=== PATIENT | male | born 1950 | race Caucasian/White ===

== ENCOUNTER 2017-03-15 10:59 | Emergency (ER) | payer MEDICARE, BC ==
[~2017-03-15 10:59] MED LIST: ADVA250A INH; ALBU1AER INH; ALBU2.5I NEB; ALLO300T2 PO; ASPI81TA82 PO; ATRO17AE INH; FURO80 PO; GLUC10TA3 PO; IBUP600 PO; IPRA0.02 NEB; KCL20 PO; LISI-363 PO; METO25TA6 PO; MULT50TA3 PO; OMEP20TA39 PO; OXYC1SOL5 PO; PRED5PAK PO; SITA100T PO; SLOWTAB PO; SPIR50TA21 PO; Z.0.OXYGENDME NC
[2017-03-15 11:00] VITALS: BP 135/74; PULSE 87; RESP 20; TEMP 98.7; O2SAT 95
[2017-03-15] MEDS ORDERED: CEPH-460 PO (11:26)
--- NOTE | 2017-03-15 11:26 | PD ---
HPI Chief Complaint: Skin Problem Time Seen by Provider: 11:20 Travel History International Travel<30 days: No Contact w/Intl Traveler<30days: No Traveled to known affect area: No History of Present Illness HPI 66-year-old diabetic male presents to emergency department concerned about an infectious process to his left hand and wrist. States that he had swelling to his right hand for approximately 1 week and has worsened over the last couple of days. Says that the redness concerns him for an infection "going to his heart". Denies trauma or any inciting events. States that it is mildly tender and he is unable to tolerate pain. Denies radiation of pain. Patient has not seen his primary care physician regarding this issue. PFSH Past Medical History Arthritis: No Asthma: Yes Anxiety: No Depression: No Cancer: No Cardiovascular Problems: Yes High Cholesterol: Yes Chest Pain: No Congestive Heart Failure: No COPD: Yes Cerebrovascular Accident: No Coronary Artery Disease: No Diabetes: Yes Diminished Hearing: Yes (BILATERAL WORSE ON LEFT) Endocrine: Yes Gastrointestinal Disorders: Yes GERD: Yes Genitourinary: No Hiatal Hernia: Yes Hypertension: Yes Immune Disorder: No Kidney Stones: No Musculoskeletal: No Neurologic: No Psychiatric: No Reproductive: No Respiratory: Yes Migraines: No Pancreatitis: Yes Renal Failure: No Seizures: No Sleep Apnea: Yes (C-PAP HS) Thyroid Disease: No Ulcer: No Past Surgical History Abdominal Surgery: Yes (HERNIA X 2 ) Cholecystectomy: Yes Ear Surgery: Yes (BILATERAL INNER EAR SURGERY) Neurologic Surgery: No Other Surgery: Yes (BILATERAL FEET) Social History Alcohol Use: No Tobacco Use: No (history of 1 PPD, quit June 2014) Substance Use: No Allergies-Medications (Allergen,Severity, Reaction): Coded Allergies: No Known Allergies (Verified , 11/18/13) Reported Meds & Prescriptions Reported Meds & Active Scripts Active Keflex (Cephalexin) 500 Mg Cap 500 Mg PO Q8H 7 Days Oxygen (O2) (Z.0.oxygendme) Device 2 L NC CONTINUOUS Oxygen Concentrator Portable Gaseous 2 L/min via Nasal Cannula Continuous For 99 months Sterapred 12 Day (Prednisone) 5 Mg Maciej 5 Mg PO DIRECTED USE DIRECTED Oxycodone/Acetaminophen 5-325 mg/5Ml (Oxycodone W/ Acetaminophen) 1 Tab Tab 1 Tab PO Q6H PRN Reported Hm Omeprazole (Omeprazole) 20 Mg Tab 20 Mg PO DAILY Lisinopril 20 mg (Lisinopril) 20 Mg Tab 20 Mg PO DAILY Lasix 80 Mg Tab (Furosemide) 80 Mg Tab 80 Mg PO DAILY Motrin 600 Mg Tab (Ibuprofen) 600 Mg Tab 600 Mg PO TID PRN Spironolactone 50 Mg Tab 50 Mg PO DAILY Glipizide 10 Mg Tab 10 Mg PO BID Janumet Xr 100 mg/1000 mg (Sitagliptin-Metformin Xr 100 mg/1000 mg) 1 Tab 1 Tab PO DAILY Toprol XL (Metoprolol Succinate) 25 Mg Chris 25 Mg PO DAILY Atrovent Ud 0.02% (0.5 Mg/2.5 Ml) (Ipratropium [place]) 0.5 Mg/2.5 Ml Nebu 1 Ampule NEB DIRECTED PRN Resp: Albuterol 2.5 Mg/3 Ml Neb (Albuterol Sulfate) 2.5 Mg/3 Ml Nebu 1 Ampule NEB DIRECTED PRN Allopurinol 300 Mg Tab 300 Mg PO DAILY PRN Advair Diskus 250/50 (Salmeterol Xinafoate/Fluticasone) 250 Mcg/50 Mcg Inhp 1 Puff INH BID A Thru Z Select 50+ Advan (Multiple Vitamins W/ Minerals) 50 + Tab 1 Tab PO DAILY Atrovent Hfa (Ipratropium [place]) 17 Mcg Aer 2 Puff INH BID Proair Hfa (Albuterol Sulfate) 8.5 Gm Aero 2 Puff INH Q6HR PRN Kcl 20 Meq Tab (Potassium Chloride) 20 Meq Tabcr 20 Meq PO BIDPC Slow-Mag (Magnesium Chloride) 64 Mg Tab 1 Tab PO DAILY Aspir-81 (Aspirin) 81 Mg Tab 81 Mg PO DAILY@1600 Physical Exam Narrative GENERAL: Well-nourished, well-developed patient. SKIN: Focused skin assessment warm/dry. Left wrist-6 cm area of erythema with mild edema. No lymphangitic Spread. Neurovascularly intact distal to the infectious process. HEAD: Normocephalic. EYES: No scleral icterus. No injection or drainage. NECK: Supple, trachea midline. No JVD or lymphadenopathy. CARDIOVASCULAR: Regular rate and rhythm without murmurs, gallops, or rubs. RESPIRATORY: Breath sounds equal bilaterally. No accessory muscle use. MUSCULOSKELETAL: No cyanosis, or edema. BACK: Nontender without obvious deformity. No CVA tenderness. Data Data Last Documented VS Vital Signs Date Time Temp Pulse Resp B/P (MAP) Pulse Ox O2 Delivery O2 Flow Rate FiO2 03/15/17 11:00 98.7 87 20 135/74 (94) 95 Room Air Orders Orders Ed Discharge Order (03/15/17 11:26) MDM Medical Decision Making Medical Screen Exam Complete: Yes Emergency Medical Condition: Yes Differential Diagnosis Left hand cellulitis, erysipelas, trauma Narrative Course 66-year-old diabetic male presents to emergency department concerned about an infectious process to his left hand and wrist. States that he had swelling to his right hand for approximately 1 week and has worsened over the last couple of days. Says that the redness concerns him for an infection "going to his heart". Denies trauma or any inciting events. States that it is mildly tender and he is unable to tolerate pain. Denies radiation of pain. Patient has not seen his primary care physician regarding this issue. States he has chronic arthritis in his primary care physician has been working to resolve this but has been unsuccessful. Patient was recently referred to an arthritis doctor but he has not followed up yet. Vital signs stable. Physical exam findings consistent with cellulitis of the left wrist and hand. It appears as though the point of entry is near the ulnar aspect of the distal wrist although not definitive. No evidence of bites or significant injuries. Patient will be discharged with antibiotics. I advised that pain medication would not be appropriate for this problem. Advised to follow-up Saturday with his primary care physician as scheduled. Return to the emergency room for worsening or persistent symptoms. Diagnosis Primary Impression: Cellulitis Qualified Codes: L03.114 - Cellulitis of left upper limb Referrals: Primary Care Physician Additional Instructions: Follow up with your primary care physician within 2-3 days. If your symptoms persist or worsen, return to the emergency department. Take all medication as prescribed. Scripts Cephalexin (Keflex) 500 Mg Cap 500 MG PO Q8H for Infection for 7 Days, #21 CAP 0 Refills Prov: Jana Ryder 03/15/17 Disposition: 01 DISCHARGE HOME Condition: Stable Jana Ryder Mar 15, 2017 11:26
== END 2017-03-15 11:52 | disposition home or self-care (01) ==
LOC: NEPK 10:59
DX: L03.114 Cellulitis of left upper limb (principal); E11.9 Type 2 diabetes mellitus without complications; E78.00 Pure hypercholesterolemia, unspecified; J44.9 Chronic obstructive pulmonary disease, unspecified; K21.9 Gastro-esophageal reflux disease without esophagitis; I10 Essential (primary) hypertension; Z87.19 Personal history of other diseases of the digestive system; Z79.899 Other long term (current) drug therapy; Z79.51 Long term (current) use of inhaled steroids
CPT/HCPCS: 99283

== ENCOUNTER 2017-03-18 10:20 | Emergency (ER) | payer MEDICARE, BC ==
[~2017-03-18] VITALS: Ht 182.9 cm; Wt 113.0 kg
[~2017-03-18 10:20] MED LIST changes: +CEPH-460 PO
[2017-03-18 10:23] VITALS: BP 130/67; PULSE 70; RESP 18; TEMP 97.9; O2SAT 94
[2017-03-18] MEDS ORDERED: ASPI1TAB57 PO (10:53)
[2017-03-18] MEDS ORDERED: FURO20TA PO (10:53)
[2017-03-18] MEDS ORDERED: GLIP10TA6 PO (10:53)
[2017-03-18] MEDS ORDERED: IPRA17I INH (10:53)
[2017-03-18] MEDS ORDERED: OMEP10CA PO (10:53)
[2017-03-18] MEDS ORDERED: SITA100T PO (10:53)
[2017-03-18] MEDS ORDERED: IPRA0.02 NEB (10:53)
[2017-03-18] MEDS ORDERED: METO25TA3 PO (10:53)
[2017-03-18] MEDS ORDERED: ADVA250A INH (10:53)
[2017-03-18] MEDS ORDERED: ALBUAER3 INH (10:53)
[2017-03-18] MEDS ORDERED: SPIR50TA PO (10:53)
[2017-03-18] MEDS ORDERED: LISI-515 PO (10:53)
[2017-03-18 11:07] LABS: AUTOMATED NEUTROPHIL # 5.3 TH/MM3 (1.8-7.7); BASOPHIL % 0.2 % (0.0-2.0); EOSINOPHIL # 0.1 TH/MM3 (0-0.4); EOSINOPHIL % 1.2 % (0.0-4.0); HEMATOCRIT 36.2 % (39.0-51.0); HEMOGLOBIN 12.4 GM/DL (13.0-17.0); LYMPH % 10.5 % (9.0-44.0); LYMPHOCYTE # 0.7 TH/MM3 (1.0-4.8); MEAN CELL VOLUME 94.3 FL (80.0-100.0); MEAN CORPUSCULAR HEMOGLOBIN 32.4 PG (27.0-34.0); MEAN CORPUSCULAR HGB CONC 34.4 % (32.0-36.0); MEAN PLATELET VOLUME 7.8 FL (7.0-11.0); MONO % 8.1 % (0.0-8.0); MONOCYTE # 0.5 TH/MM3 (0-0.9); PLATELET COUNT 180 TH/MM3 (150-450); RED BLOOD COUNT 3.84 MIL/MM3 (4.50-5.90); RED CELL DISTRIBUTION WIDTH 15.4 % (11.6-17.2); WHITE BLOOD COUNT 6.6 TH/MM3 (4.0-11.0)
[2017-03-18 11:22] LABS: BICARBONATE 25.6 MEQ/L (21.0-32.0); CALCIUM 8.5 MG/DL (8.5-10.1); CREATININE 1.01 MG/DL (0.60-1.30)
[2017-03-18] MEDS ORDERED: ASP: No known hypersensitivity to Vanco, Telavancin, Dalbavancin OTHER ONE (11:45)
[2017-03-18] MEDS ORDERED: ASP: Does not meet inpatient admission criteria OTHER ONE (11:45)
[2017-03-18] MEDS ORDERED: MISCELLANEOUS PHARMACY INFORMATION XX ONE (11:45)
[2017-03-18] MEDS ORDERED: ASP: Location of Dalbavancin administration OTHER ONE (11:45)
[2017-03-18] MEDS ORDERED: DALBAVANCIN INJ 1,500 MG in DEXTROSE 5% IN WATE 500 ML INJ 500 ML IV STA ×2 (11:45)
--- NOTE | 2017-03-18 11:57 | RADRPT ---
EXAM DATE/TIME: 03/18/2017 11:30 [facility] COMPARISON: No previous studies available for comparison. INDICATIONS : Left arm swelling. MEDICAL HISTORY : Hypercholesterolemia. Chronic obstructive pulmonary disease. Gastroesophageal reflux disease. Hearing loss. Hypertension. Sleep apnea. Pancreatitis. Hiatal hernia. Diabetes. Liver disease. SURGICAL HISTORY : Cholecystectomy. Hernia repair. Inner ear surgery. ENCOUNTER: Initial ACUITY: 1 week PAIN SCORE: 9/10 LOCATION: Left arm. FINDINGS: There is spontaneous flow documented in the brachial, basilic, cephalic, axillary, and subclavian vei ns. The vessels are compressible and augmentation response is documented. The subclavian vein could not be compressed secondary to the clavicle. No filling defects are seen. The flow is phasic with r espiration. Direction of flow in the jugular vein is caudal. CONCLUSION: No DVT. Yoan Jones MD on March 18, 2017 at 11:54 Board Certified Radiologist. This report was verified electronically.
--- NOTE | 2017-03-18 12:15 | PD ---
HPI Chief Complaint: Skin Problem Time Seen by Provider: 10:32 Travel History International Travel<30 days: No Contact w/Intl Traveler<30days: No Traveled to known affect area: No History of Present Illness HPI 66-year-old male arrives to the ER complaining of pain and swelling and redness in the left wrist. He's had it for just over a week. He reports he had a similar process involving the right wrist which responded to antibiotics although it took 5 doctor visits to heal completely over the course of several weeks. He denies fever. He has no shortness of breath. No history DVT. He reports that swelling in his legs as well as arms which is chronic in nature. He denies to us the time of interview in any need for Lasix/spironolactone however his EMR shows prior evidence of diaphoresis. PFSH Past Medical History Arthritis: No Asthma: Yes Anxiety: No Depression: No Cancer: No Cardiovascular Problems: Yes High Cholesterol: Yes Chest Pain: No Congestive Heart Failure: No COPD: Yes Cerebrovascular Accident: No Coronary Artery Disease: No Diabetes: Yes Patient Takes Glucophage: No Diminished Hearing: Yes (BILATERAL WORSE ON LEFT) Endocrine: Yes Gastrointestinal Disorders: Yes GERD: Yes Genitourinary: No Hiatal Hernia: Yes Hypertension: Yes Immune Disorder: No Kidney Stones: No Musculoskeletal: No Neurologic: No Psychiatric: No Reproductive: No Respiratory: Yes Migraines: No Pancreatitis: Yes Renal Failure: No Seizures: No Sleep Apnea: Yes (C-PAP HS) Thyroid Disease: No Ulcer: No Past Surgical History Abdominal Surgery: Yes (HERNIA X 2 ) Cholecystectomy: Yes Ear Surgery: Yes (BILATERAL INNER EAR SURGERY) Neurologic Surgery: No Other Surgery: Yes (BILATERAL FEET) Social History Alcohol Use: No Tobacco Use: No (history of 1 PPD, quit June 2014) Substance Use: No Allergies-Medications (Allergen,Severity, Reaction): Coded Allergies: No Known Allergies (Verified Allergy, Unknown, 03/18/17) Reported Meds & Prescriptions Reported Meds & Active Scripts Active Keflex (Cephalexin) 500 Mg Cap 500 Mg PO Q8H 7 Days Reported Ipratropium Neb (Ipratropium [place]) 0.5 Mg/2.5 Ml Amp 0.5 Mg NEB Q4HR NEB PRN Proair Hfa 8.5 GM Inh (Albuterol Sulfate) 90 Mcg/Act Aer 2 Puff INH BID PRN 108 mcg/actuation Advair Diskus Inh (Fluticasone-Salmeterol Inh) 250-50 Mcg/Blist Aer 1 Puff INH BID Rinse mouth after use. Atrovent HFA 12.9 GM Inh (Ipratropium [place]) 17 Mcg/Actuation Aer 2 Puff INH BID Furosemide 20 Mg Tab 20 Mg PO DAILY Janumet Xr (Sitagliptin-Metformin ER) 100-1,000 Mg Tab 1 Tab PO DAILY Glipizide 10 Mg Tab 10 Mg PO BIDAC Take 30 minutes before a meal Spironolactone 50 Mg Tab 50 Mg PO DAILY Aspirin 81 (Aspirin) 81 Mg Tabdr 81 Mg PO DAILY Lisinopril 20 Mg Tab 20 Mg PO DAILY Omeprazole 10 Mg Cap 10 Mg PO DAILY Metoprolol Tartrate 25 Mg Tab 25 Mg PO DAILY Review of Systems Except as stated in HPI: all other systems reviewed are Neg General / Constitutional: No: Fever, Chills Physical Exam Narrative GENERAL: 66-year-old male pleasant well-nourished well-developed no acute distress SKIN: Focused skin assessment warm/dry. HEAD: Atraumatic. Normocephalic. EYES: Pupils equal and round. No scleral icterus. No injection or drainage. ENT: No nasal bleeding or discharge. Mucous membranes pink and moist. NECK: Trachea midline. No JVD. CARDIOVASCULAR: Regular rate and rhythm. No murmur appreciated. RESPIRATORY: No accessory muscle use. Clear to auscultation. Breath sounds equal bilaterally. GASTROINTESTINAL: Abdomen soft, non-tender, nondistended. Hepatic and splenic margins not palpable. MUSCULOSKELETAL: No obvious deformities. No clubbing. No cyanosis. There is generalized erythema with some tenderness and induration from the distal third of the left forearm to the region of the proximal hand. There is 2+ radial artery pulse bilaterally. There is 2+ pitting edema lower extremity as bilaterally. The hand histology technician is equal bilaterally. There is no fluctuance. NEUROLOGICAL: Awake and alert. No obvious cranial nerve deficits. Motor grossly within normal limits. Normal speech. PSYCHIATRIC: Appropriate mood and affect; insight and judgment normal. Data Data Last Documented VS Vital Signs Date Time Temp Pulse Resp B/P (MAP) Pulse Ox O2 Delivery O2 Flow Rate FiO2 03/18/17 10:32 18 03/18/17 10:23 97.9 70 130/67 (88) 94 Room Air Vital Signs Date Time Temp Pulse Resp B/P (MAP) Pulse Ox O2 Delivery O2 Flow Rate FiO2 03/18/17 10:32 18 03/18/17 10:23 97.9 70 18 130/67 (88) 94 Room Air Orders Orders Us Arm Venous Doppler (03/18/17 ) Basic Metabolic Panel (Bmp) (03/18/17 10:38) Complete Blood Count With Diff (03/18/17 10:38) Iv Access Insert/Monitor (03/18/17 10:38) Asp:No Reaction To [place]/Vanc (Asp Crit (03/18/17 11:45) Asp: Does Not Meet Inpt Admit (Asp Crit: (03/18/17 11:45) Asp: Location Of [place] Admin (Asp Crit: (03/18/17 11:45) [facility] ([facility] (03/18/17 11:45) Dal[place]avancin Inj (Dalvance Inj) (03/18/17 11:45) Labs Laboratory Tests Test 03/18/17 10:56 White Blood Count 6.6 TH/MM3 Red Blood Count 3.84 MIL/MM3 Hemoglobin 12.4 GM/DL Hematocrit 36.2 % Mean Corpuscular Volume 94.3 FL Mean Corpuscular Hemoglobin 32.4 PG Mean Corpuscular Hemoglobin Concent 34.4 % Red Cell Distribution Width 15.4 % Platelet Count 180 TH/MM3 Mean Platelet Volume 7.8 FL Neutrophils (%) (Auto) 80.0 % Lymphocytes (%) (Auto) 10.5 % Monocytes (%) (Auto) 8.1 % Eosinophils (%) (Auto) 1.2 % Basophils (%) (Auto) 0.2 % Neutrophils # (Auto) 5.3 TH/MM3 Lymphocytes # (Auto) 0.7 TH/MM3 Monocytes # (Auto) 0.5 TH/MM3 Eosinophils # (Auto) 0.1 TH/MM3 Basophils # (Auto) 0.0 TH/MM3 CBC Comment DIFF FINAL Differential Comment Blood Urea Nitrogen 18 MG/DL Creatinine 1.01 MG/DL Random Glucose 87 MG/DL Calcium Level 8.5 MG/DL Sodium Level 140 MEQ/L Potassium Level 3.9 MEQ/L Chloride Level 108 MEQ/L Carbon Dioxide Level 25.6 MEQ/L Anion Gap 6 MEQ/L Estimat Glomerular Filtration Rate 73 ML/MIN MDM Medical Decision Making Medical Screen Exam Complete: Yes Emergency Medical Condition: Yes Medical Record Reviewed: Yes Differential Diagnosis DVT, edema, cellulitis Narrative Course CBC & BMP Diagram 03/18/17 10:56 Calcium Level 8.5 Ultrasound study shows no DVT We will provide a dose of Dalvance here. Diagnosis Primary Impression: Cellulitis Qualified Codes: L03.114 - Cellulitis of left upper limb Med/Other Pt SpecificInfo: No Change to Meds Disposition: 01 DISCHARGE HOME Condition: Stable Lebron Marin MD Mar 18, 2017 12:15
== END 2017-03-18 14:41 | disposition home or self-care (01) ==
LOC: NEPD 10:20
DX: L03.114 Cellulitis of left upper limb (principal); M79.89 Other specified soft tissue disorders; E11.9 Type 2 diabetes mellitus without complications; E78.00 Pure hypercholesterolemia, unspecified; I10 Essential (primary) hypertension; J44.9 Chronic obstructive pulmonary disease, unspecified; K21.9 Gastro-esophageal reflux disease without esophagitis; Z87.891 Personal history of nicotine dependence; G47.30 Sleep apnea, unspecified
CPT/HCPCS: 80048; 85025; 93971; 96374; 99284; J0875; J7060

== ENCOUNTER 2017-03-23 09:49 | Inpatient (IN) | payer MEDICARE, BC ==
[2017-03-23] VITALS (7 sets, daily range): BP systolic 98–144; BP diastolic 61–86; PULSE 54–106; RESP 16–22; TEMP 97.7–98.4; O2SAT 93–97
[~2017-03-23] VITALS: Ht 190.5 cm; Wt 127.2 kg
[~2017-03-23 09:49] MED LIST changes: -ALBU1AER INH; -ALBU2.5I NEB; +ALBUAER3 INH; -ALLO300T2 PO; +ASPI1TAB57 PO; -ASPI81TA82 PO; -ATRO17AE INH; +FURO20TA PO; -FURO80 PO; +GLIP10TA6 PO; -GLUC10TA3 PO; -IBUP600 PO; +IPRA17I INH; -KCL20 PO; -LISI-363 PO; +LISI-515 PO; +METO25TA3 PO; -METO25TA6 PO; -MULT50TA3 PO; +OMEP10CA PO; -OMEP20TA39 PO; -OXYC1SOL5 PO; -PRED5PAK PO; -SLOWTAB PO; +SPIR50TA PO; -SPIR50TA21 PO; -Z.0.OXYGENDME NC
[2017-03-23] MEDS ORDERED: PIPERACIL-TAZO 4.5 GM PREMIX 100 ML IV STA (10:07)
[2017-03-23] MEDS ORDERED: VANCOMYCIN INJ 1,000 MG in SODIUM CHLOR 0.9% 250 ML INJ 250 ML IV STA (10:07)
--- NOTE | 2017-03-23 10:49 | RADRPT ---
EXAM DATE/TIME: 03/23/2017 10:33 [facility] COMPARISON: No previous studies available for comparison. INDICATIONS : Left arm pain and swelling. MEDICAL HISTORY : None. SURGICAL HISTORY : None. ENCOUNTER: Initial ACUITY: 3 days PAIN SCORE: 10/10 LOCATION: Left forearm FINDINGS: There is evidence of a moderate-sized elbow joint effusion. There is probable acute fracture involvin g the left radial head. Clinical correlation is recommended. Degenerative changes are noted involving the elbow joint. CONCLUSION: 1. Moderate-sized elbow joint effusion. 2. Probable acute fracture involving the left radial head. Clinical correlation is recommended. Aneudy Bhatti MD on March 23, 2017 at 10:45 Board Certified Radiologist. This report was verified electronically.
--- NOTE | 2017-03-23 11:37 | RADRPT ---
EXAM DATE/TIME: 03/23/2017 10:50 [facility] COMPARISON: US ARM LEFT VENOUS DOPPLER, March 18, 2017, 11:30. INDICATIONS : Left arm swelling. MEDICAL HISTORY : Hypertension. Hypercholesterolemia. Cardiac disorders.COPD. Pancreatitis. Hiatal hernia. GERD. SURGICAL HISTORY : Orthopaedic surgery. Hernia repair. Cholecystectomy. ENCOUNTER: Initial ACUITY: 1 day PAIN SCORE: 5/10 LOCATION: Left arm. FINDINGS: There is spontaneous flow documented in the brachial, basilic, cephalic, axillary, and subclavian vei ns. The vessels are compressible and augmentation response is documented. No filling defects are se en. The flow is phasic with respiration. Direction of flow in the jugular vein is caudal. CONCLUSION: No evidence of deep venous thrombosis within the left upper extremity. Aneudy Bhatti MD on March 23, 2017 at 11:33 Board Certified Radiologist. This report was verified electronically.
[2017-03-23 11:43] LABS: AUTOMATED NEUTROPHIL # 5.3 TH/MM3 (1.8-7.7); BASOPHIL % 0.3 % (0.0-2.0); EOSINOPHIL # 0.1 TH/MM3 (0-0.4); EOSINOPHIL % 1.4 % (0.0-4.0); HEMATOCRIT 36.1 % (39.0-51.0); HEMOGLOBIN 12.1 GM/DL (13.0-17.0); LYMPH % 12.9 % (9.0-44.0); LYMPHOCYTE # 0.9 TH/MM3 (1.0-4.8); MEAN CELL VOLUME 94.7 FL (80.0-100.0); MEAN CORPUSCULAR HEMOGLOBIN 31.6 PG (27.0-34.0); MEAN CORPUSCULAR HGB CONC 33.4 % (32.0-36.0); MEAN PLATELET VOLUME 7.3 FL (7.0-11.0); MONO % 9.8 % (0.0-8.0); MONOCYTE # 0.7 TH/MM3 (0-0.9); NEUT % 75.6 % (16.0-70.0); PLATELET COUNT 199 TH/MM3 (150-450); RED BLOOD COUNT 3.81 MIL/MM3 (4.50-5.90); RED CELL DISTRIBUTION WIDTH 15.3 % (11.6-17.2)
--- NOTE | 2017-03-23 11:52 | PD ---
HPI Chief Complaint: Skin Problem Time Seen by Provider: 10:00 Travel History International Travel<30 days: No Contact w/Intl Traveler<30days: No Traveled to known affect area: No History of Present Illness HPI 66-year-old male presents with continued swelling and redness to his left arm despite multiple antibiotics. He states he originally was given pills and then he came to the ER and was given a strong IV shot but is still not better. He denies any fever or other concurrent complaints. He feels worse when he moves around. He is having associated pain in that arm. He states he's had multiple prior infections and had to stay in the hospital for IV antibiotics. Quality is red. Severity is progressive. Duration is since the beginning of the year. PFSH Past Medical History Arthritis: No Asthma: Yes Anxiety: No Depression: No Cancer: No Cardiovascular Problems: Yes High Cholesterol: Yes Chest Pain: No Congestive Heart Failure: No COPD: Yes Cerebrovascular Accident: No Coronary Artery Disease: No Diabetes: Yes Patient Takes Glucophage: No Diminished Hearing: Yes (BILATERAL WORSE ON LEFT) Endocrine: Yes Gastrointestinal Disorders: Yes GERD: Yes Genitourinary: No Hiatal Hernia: Yes Hypertension: Yes Immune Disorder: No Kidney Stones: No Musculoskeletal: No Neurologic: No Psychiatric: No Reproductive: No Respiratory: Yes Migraines: No Pancreatitis: Yes Renal Failure: No Seizures: No Sleep Apnea: Yes (C-PAP HS) Thyroid Disease: No Ulcer: No Past Surgical History Abdominal Surgery: Yes (HERNIA X 2 ) Cholecystectomy: Yes Ear Surgery: Yes (BILATERAL INNER EAR SURGERY) Neurologic Surgery: No Other Surgery: Yes (BILATERAL FEET) Social History Alcohol Use: No Tobacco Use: No (history of 1 PPD, quit June 2014) Substance Use: No Allergies-Medications (Allergen,Severity, Reaction): Coded Allergies: No Known Allergies (Verified Allergy, Unknown, 03/23/17) Reported Meds & Prescriptions Reported Meds & Active Scripts Active Keflex (Cephalexin) 500 Mg Cap 500 Mg PO Q8H 7 Days Reported Ipratropium Neb (Ipratropium [place]) 0.5 Mg/2.5 Ml Amp 0.5 Mg NEB Q4HR NEB PRN Proair Hfa 8.5 GM Inh (Albuterol Sulfate) 90 Mcg/Act Aer 2 Puff INH BID PRN 108 mcg/actuation Advair Diskus Inh (Fluticasone-Salmeterol Inh) 250-50 Mcg/Blist Aer 1 Puff INH BID Rinse mouth after use. Atrovent HFA 12.9 GM Inh (Ipratropium [place]) 17 Mcg/Actuation Aer 2 Puff INH BID Furosemide 20 Mg Tab 20 Mg PO DAILY Janumet Xr (Sitagliptin-Metformin ER) 100-1,000 Mg Tab 1 Tab PO DAILY Glipizide 10 Mg Tab 10 Mg PO BIDAC Take 30 minutes before a meal Spironolactone 50 Mg Tab 50 Mg PO DAILY Aspirin 81 (Aspirin) 81 Mg Tabdr 81 Mg PO DAILY Lisinopril 20 Mg Tab 20 Mg PO DAILY Omeprazole 10 Mg Cap 10 Mg PO DAILY Metoprolol Tartrate 25 Mg Tab 25 Mg PO DAILY Review of Systems Except as stated in HPI: all other systems reviewed are Neg Physical Exam Narrative GENERAL: Well-nourished, well-developed patient. SKIN: Redness noted to left arm from wrist to just above the elbow, no open laceration noted, no crepitus, no induration HEAD: Normocephalic and atraumatic. EYES: No injection or drainage. ENT: No nasal drainage noted. NECK: Supple, trachea midline. CARDIOVASCULAR: Regular rate and rhythm RESPIRATORY: No increased effort. No accessory muscle use. GASTROINTESTINAL: Abdomen soft, non-tender, nondistended. EXTREMITIES: Patient has significant edema noted to entire left arm with associated erythema as above, patient has significant tenderness to entire left arm with movement, neurovascularly intact -strong radial pulse noted, sensation intact NEUROLOGICAL: Awake and alert. Motor and sensory grossly within normal limits. Normal speech. Data Data Last Documented VS Vital Signs Date Time Temp Pulse Resp B/P (MAP) Pulse Ox O2 Delivery O2 Flow Rate FiO2 03/23/17 09:52 98.3 106 22 144/86 (105) 93 Room Air Orders Orders Complete Blood Count With Diff (03/23/17 10:07) Comprehensive Metabolic Panel (03/23/17 10:07) Prothrombin Time / Inr (Pt) (03/23/17 10:07) Act Partial Throm Time (Ptt) (03/23/17 10:07) Lactic Acid Sepsis Protocol (03/23/17 10:07) Blood Culture (03/23/17 10:07) Ecg Monitoring (03/23/17 10:07) Iv Access Insert/Monitor (03/23/17 10:07) Oximetry (03/23/17 10:07) Piperacil-Tazo 4.5 Gm Premix (Zosyn 4.5 (03/23/17 10:07) Vancomycin Inj (Vancomycin Inj) (03/23/17 10:07) Us Arm Venous Doppler (03/23/17 ) Forearm (2vws) (03/23/17 ) Splint Or Brace Apply/Monitor (03/23/17 12:52) Admit Order (Ed Use Only) (03/23/17 13:00) Labs Laboratory Tests Test 03/23/17 11:27 White Blood Count 7.0 TH/MM3 Red Blood Count 3.81 MIL/MM3 Hemoglobin 12.1 GM/DL Hematocrit 36.1 % Mean Corpuscular Volume 94.7 FL Mean Corpuscular Hemoglobin 31.6 PG Mean Corpuscular Hemoglobin Concent 33.4 % Red Cell Distribution Width 15.3 % Platelet Count 199 TH/MM3 Mean Platelet Volume 7.3 FL Neutrophils (%) (Auto) 75.6 % Lymphocytes (%) (Auto) 12.9 % Monocytes (%) (Auto) 9.8 % Eosinophils (%) (Auto) 1.4 % Basophils (%) (Auto) 0.3 % Neutrophils # (Auto) 5.3 TH/MM3 Lymphocytes # (Auto) 0.9 TH/MM3 Monocytes # (Auto) 0.7 TH/MM3 Eosinophils # (Auto) 0.1 TH/MM3 Basophils # (Auto) 0.0 TH/MM3 CBC Comment DIFF FINAL Differential Comment Prothrombin Time 11.1 SEC Prothromb Time International Ratio 1.1 RATIO Activated Partial Thromboplast Time 25.5 SEC Blood Urea Nitrogen 17 MG/DL Creatinine 1.04 MG/DL Random Glucose 79 MG/DL Total Protein 6.5 GM/DL Albumin 2.8 GM/DL Calcium Level 8.5 MG/DL Alkaline Phosphatase 71 U/L Aspartate Amino Transf (AST/SGOT) 15 U/L Alanine Aminotransferase (ALT/SGPT) 26 U/L Total Bilirubin 0.4 MG/DL Sodium Level 139 MEQ/L Potassium Level 4.1 MEQ/L Chloride Level 105 MEQ/L Carbon Dioxide Level 26.8 MEQ/L Anion Gap 7 MEQ/L Estimat Glomerular Filtration Rate 71 ML/MIN Lactic Acid Level 1.2 mmol/L [facility] Medical Decision Making Medical Screen Exam Complete: Yes Emergency Medical Condition: Yes Medical Record Reviewed: Yes (past history confirmed) Interpretation(s) CBC & BMP Diagram 03/23/17 11:27 Total Protein 6.5, Albumin 2.8 L, Calcium Level 8.5, Alkaline Phosphatase 71, Aspartate Amino Transf (AST/SGOT) 15, Alanine Aminotransferase (ALT/SGPT) 26, Total Bilirubin 0.4 Last 24 hours Impressions Upper Extremity Ultrasound 03/23/17 0000 Signed Impressions: Service Date/Time: Thursday, March 23, 2017 10:50 - CONCLUSION: No evidence of deep venous thrombosis within the left upper extremity. Aneudy Bhatti MD Radius/Ulna X-Ray 03/23/17 0000 Signed Impressions: Service Date/Time: Thursday, March 23, 2017 10:33 - CONCLUSION: 1. Moderate-sized elbow joint effusion. 2. Probable acute fracture involving the left radial head. Clinical correlation is recommended. Aneudy Bhatti MD Differential Diagnosis DVT, cellulitis, abscess, fracture Narrative Course Will check blood work, x-ray, ultrasound and dose with IV antibiotics and monitor xray with possible radial head fracture, patient states he maybe had trauma where he fell on that arm. We'll discuss with orthopedic physician. Patient agrees to admission for IV antibiotics and was updated Physician Communication Physician Communication ortho states to place in sling only dr austin agrees to admit Diagnosis Primary Impression: Cellulitis Qualified Codes: L03.114 - Cellulitis of left upper limb Admitting Information Admitting Physician Requests: Admit Vidya Jason MD Mar 23, 2017 11:52
[2017-03-23 11:57] LABS: ALBUMIN 2.8 GM/DL (3.4-5.0); AST (GOT) 15 U/L (15-37); BICARBONATE 26.8 MEQ/L (21.0-32.0); BLOOD UREA NITROGEN 17 MG/DL (7-18); CALCIUM 8.5 MG/DL (8.5-10.1); CHLORIDE 105 MEQ/L (98-107); CREATININE 1.04 MG/DL (0.60-1.30); GLOMERULAR FILTRATION RATE 71 ML/MIN (>89); GLUCOSE,RANDOM 79 MG/DL (74-106); INTERNATIONAL NORMALIZED RATIO 1.1 RATIO; PROTHROMBIN TIME - PATIENT 11.1 SEC (9.8-11.6); SODIUM (NA) 139 MEQ/L (136-145)
[2017-03-23 11:59] LABS: ALT (GPT) 26 U/L (12-78)
[2017-03-23 12:01] LABS: ALKALINE PHOSPHATASE 71 U/L (45-117); TOTAL BILIRUBIN ADULT 0.4 MG/DL (0.2-1.0); TOTAL PROTEIN 6.5 GM/DL (6.4-8.2)
[2017-03-23] MEDS ORDERED: NALOXONE HCL 0.4 MG/ML AMP IV PUSH PRN (13:00)
[2017-03-23] MEDS ORDERED: MAGNESIUM HYDROXIDE SUSP 30 ML CUP PO PRN (13:00)
[2017-03-23] MEDS ORDERED: LACTULOSE SYRUP 20 GM/30 ML CUP PO PRN (13:00)
[2017-03-23] MEDS ORDERED: SODIUM CHLORIDE 0.9% FLUSH 10 ML FLUSH IV FLUSH PRN (13:00)
[2017-03-23] MEDS ORDERED: ONDANSETRON HCL 4 MG/2 ML VIAL IVP PRN (13:00)
[2017-03-23] MEDS ORDERED: BISACODYL 10 MG SUPP RECTAL PRN (13:00)
[2017-03-23] MEDS ORDERED: RESP: IPRATROPIUM 0.5 MG/2.5 ML NEB NEB PRN (13:00)
[2017-03-23] MEDS ORDERED: ACETAMINOPHEN 325 MG TAB PO PRN (13:00)
[2017-03-23] MEDS ORDERED: SENNOSIDES 8.6 MG TAB PO PRN (13:00)
[2017-03-23] MEDS ORDERED: Vancomycin Consult Pharmacy 1 EA OTHER SCH (13:15)
[2017-03-23] MEDS ORDERED: TIOTROPIUM BROMIDE 18 MCG INH INH SCH (13:54)
--- NOTE | 2017-03-23 17:29 | MB ---
cc: JONNY CANO MD DATE OF CONSULTATION 03/23/[address] Howard REASON FOR CONSULTATION Cellulitis of the left arm. Radial head fracture. He has outpatient antibiotic treatment. HISTORY OF PRESENT ILLNESS This is a 66 year old white male who presented to the emergency department because of worsening of left arm infection and swelling. The patient initially presented to the emergency department on March 15 with left arm swelling and pain. At that time, he was noted to have erythema approximately 6 cm at the left wrist and mild edema with no lymphatic spread. He was given p.o. Keflex and discharged from the emergency department. The patient states that he had fallen on his elbow prior to development of the left upper extremity swelling. The patient returned to the emergency department on March 18 because he was not proving. At that time, he was noted to have erythema over the left forearm down to the distal aspect from his elbow. He was given intravenous Dalvance and he was discharged from the emergency department. Ultrasound of the upper extremity had shown no evidence of deep venous thrombosis. During this hospitalization the patient was evaluated in the emergency department and he has very significant swelling and discomfort of his left arm. The left arm is also markedly swollen. He was put on vancomycin. The white count is 7.0 and he is afebrile. Blood cultures were taken also. The patient denies chills or fever at home. He states that he has more swelling including his lower extremities. Ultrasound of the upper extremity shows no evidence of deep venous thrombosis. X-ray of the radius and ulna shows a moderate sized elbow joint effusion and probable acute fracture involving the left radial head. This consultation is requested for infection management. The patient denies breaks to the skin, but he states that there was some bleeding from his left elbow area which he noticed on his shirt sleeve after he fell a couple of weeks ago. PAST MEDICAL HISTORY 1. COPD, 2. Diabetes mellitus, 3. Sleep apnea. The patient uses BiPap at home 4. Hypertension, 5. History of pancreatitis 6. Hiatal hernia, 7. Gastroesophageal reflux disease, 8. Hypercholesteremia 9. History of cholecystectomy, 10. Bilateral ear surgery ALLERGIES NO KNOWN DRUG ALLERGIES. MEDICATIONS 1. Vancomycin. 2. Piperacillin/tazobactam. 3. Spiriva 4. Protonix 5. Aldactone 6. Lopressor. 7. Prinivil. 8. Lasix, 9. Ecotrin. 10. Symbicort. SOCIAL HISTORY No tobacco. No alcohol. No illicit drugs. FAMILY HISTORY Noncontributory. REVIEW OF SYSTEMS CONSTITUTIONAL: Denies fever or chills. HEENT: Denies visual blurring or diplopia. Denies nasal drainage or swelling. Denies difficulty swallowing or soreness of the throat. CARDIOVASCULAR: Denies palpitation or chest pain, PULMONARY: Denies cough or shortness of breath. GASTROINTESTINAL: Denies nausea, vomiting, abdominal pain or diarrhea. GENITOURINARY: Denies urgency, frequency or dysuria. HEMATOPOIETIC: Denies easy bruising or bleeding. MUSCULOSKELETAL: Significant for edema of legs. INTEGUMENTARY: Denies skin rash or itching. NEUROLOGIC: Denies problems with coordination. Decreased transformation manager strength in the left arm. PSYCHIATRIC: Denies mode changes or depression. PHYSICAL EXAMINATION GENERAL: This is a well-developed obese male in no acute distress. VITAL SIGNS: Temperature 97.7, BP 98/61, respirations 20, heart rate 60. HEENT: Head atraumatic. Extraocular movements grossly intact. No icterus. Oropharynx - moist mucosa without lesions. NECK: Supple. No adenopathy or swelling. LUNGS: Bilateral basilar rhonchi. HEART: Regular S1 and S2 without murmurs, rubs or gallops. ABDOMEN: Bowel sounds present, soft, nontender. RECTAL: Not performed. EXTREMITIES: The left arm is markedly swollen approximately 3+ from the hands including the dorsum of the hand all the way up to the left elbow. There is an area of fluctuance at the left elbow. The left hand has pitting edema. Decreased transformation manager strength at the left hand. He has decreased distal pulses at the ulnar and radial areas. The left lower extremity has 2+ edema. SKIN: Minimal erythema at the left arm. No diffuse rash. NEUROLOGIC: No gross focal findings. PSYCHIATRIC: The patient is calm and cooperative. LABORATORY DATA WBC 7.0, platelet count 199, hemoglobin 12.1, 75% neutrophils, 12% lymphocytes, 9% monocytes. Creatinine 1.04, BUN 17, sodium 139, AST 15, ALT 26. The patient received Dalvance which should cover gram-positive organisms and usually lasts for at least five days to one week as far as adequate blood level is concerned. It is unclear to me whether or not he may have responded as far as cellulitis is concerned because I did not see the arm a week ago and it has very minimal erythema currently. IMPRESSION 1. Left upper extremity swelling likely related to fracture of left upper extremity. 2. Cellulitis of the upper extremity, appears mild. 3. Probable abscess or fluid collection or hematoma at the left elbow following a fall. 4. Failure of antibiotic treatment. RECOMMENDATIONS 1. Continue vancomycin for now. 2. Continue piperacillin/tazobactam for now. 3. Monitor response to antibiotic therapy 4. Elevate the left arm 4. Agree with orthopedic evaluation regarding fracture. The patient's progress will be monitored. Further recommendations will be given depending on his plan of treatment and response to treatment. Thank you for this consultation. Jonny Cano MD FD/ /3:06 PM /4:48 PM
[2017-03-23] MEDS ORDERED: ACETAMINOPHEN/HYDROcodone 325 MG/5 MG TAB PO PRN (19:30)
[2017-03-23] MEDS: ACETAMINOPHEN/HYDROcodone 325 MG/10 MG TAB PO PRN (20:26)
[2017-03-23] MEDS: SODIUM CHLORIDE 0.9% FLUSH 10 ML FLUSH IV FLUSH SCH (20:56)
[2017-03-23] MEDS: PIPERACIL-TAZO 3.375 GM PREMIX 50 ML IV SCH (20:56)
[2017-03-23] MEDS: BUDESONIDE-FORMOTEROL 160/4.5 MCG INHALER INH SCH (21:04)
[2017-03-24] VITALS (9 sets, daily range): BP systolic 88–115; BP diastolic 56–78; PULSE 53–99; RESP 16–21; TEMP 97.6–99.3; O2SAT 94–97
[2017-03-24] MEDS ORDERED: VANCOMYCIN INJ 1,250 MG in SODIUM CHLOR 0.9% 250 ML INJ 250 ML IV SCH (01:00)
[2017-03-24] MEDS: ACETAMINOPHEN/HYDROcodone 325 MG/10 MG TAB PO PRN ×4 (01:19→20:01)
[2017-03-24] MEDS: PIPERACIL-TAZO 3.375 GM PREMIX 50 ML IV SCH ×2 (04:35→12:16)
[2017-03-24] MEDS ORDERED: DEXTROSE 50% IN WATER 50 ML VIAL(D50) IV PUSH PRN (07:15)
[2017-03-24] MEDS ORDERED: GLUCAGON 1 MG/ML VIAL OTHER PRN (07:15)
[2017-03-24 07:20] LABS: AUTOMATED NEUTROPHIL # 4.3 TH/MM3 (1.8-7.7); BASOPHIL % 0.7 % (0.0-2.0); EOSINOPHIL # 0.1 TH/MM3 (0-0.4); EOSINOPHIL % 2.1 % (0.0-4.0); HEMATOCRIT 35.2 % (39.0-51.0); HEMOGLOBIN 12.2 GM/DL (13.0-17.0); LYMPH % 15.3 % (9.0-44.0); LYMPHOCYTE # 0.9 TH/MM3 (1.0-4.8); MEAN CORPUSCULAR HEMOGLOBIN 32.7 PG (27.0-34.0); MEAN CORPUSCULAR HGB CONC 34.8 % (32.0-36.0); MEAN PLATELET VOLUME 7.7 FL (7.0-11.0); MONOCYTE # 0.7 TH/MM3 (0-0.9); NEUT % 70.9 % (16.0-70.0); PLATELET COUNT 198 TH/MM3 (150-450); RED BLOOD COUNT 3.74 MIL/MM3 (4.50-5.90); RED CELL DISTRIBUTION WIDTH 15.1 % (11.6-17.2); WHITE BLOOD COUNT 6.1 TH/MM3 (4.0-11.0)
[2017-03-24 07:42] LABS: BICARBONATE 26.7 MEQ/L (21.0-32.0); CALCIUM 8.7 MG/DL (8.5-10.1); CREATININE 0.98 MG/DL (0.60-1.30)
[2017-03-24] MEDS: INSULIN ASPART SUPPLEMENTAL SCALE SQ SCH ×4 (08:00→20:25)
[2017-03-24] MEDS: PANTOPRAZOLE SOD 20 MG DELAYED RELEASE TAB PO SCH (08:19)
[2017-03-24] MEDS: LISINOPRIL 20 MG TAB PO SCH (08:19)
[2017-03-24] MEDS: METOPROLOL TARTRATE 25 MG TAB PO SCH (08:19)
[2017-03-24] MEDS: ASPIRIN EC 81 MG TABEC PO SCH (08:20)
[2017-03-24] MEDS: SPIRONOLACTONE 50 MG TAB PO SCH (08:20)
[2017-03-24] MEDS: BUDESONIDE-FORMOTEROL 160/4.5 MCG INHALER INH SCH ×2 (08:20→20:01)
[2017-03-24] MEDS: SODIUM CHLORIDE 0.9% FLUSH 10 ML FLUSH IV FLUSH SCH ×2 (08:31→20:01)
--- NOTE | 2017-03-24 08:49 | MB ---
cc: JOHNNY HOWARD MD, TODD DATE OF CONSULTATION: 03/24/2017 REASON FOR CONSULTATION: Left radial head fracture with elbow pain. CONSULTING PHYSICIAN Dr. Howard BOLA Hernandez is a 66 year-old male. He states that he had a fall approximately two months ago. He landed on his left arm. He had left elbow and left shoulder pain at that time. The patient states that he tried to ignore the pain. He had difficulty using the left arm. Over the past week he has noticed increasing swelling of the left arm as well as his legs. He also noted red rash on the left hand and wrist. He presented to the emergency room where he was diagnosed with cellulitis. X-rays of the elbow also revealed a possible nondisplaced fracture of the left radial head. Ultrasound of the left arm revealed no evidence of DVT. He is currently awake and alert. His only complaint is his left arm. PAST MEDICAL HISTORY ILLNESSES: 1. COPD. 2. Diabetes. 3. Sleep apnea. 4. Hypertension. 5. Hiatal hernia. 6. Reflux. 7. High cholesterol. ALLERGIES NO KNOWN DRUG ALLERGIES. CURRENT MEDICATIONS Include: 1. Vancomycin. 2. Spiriva. 3. Protonix. 4. Aldactone. 5. Lopressor. 6. Prinivil. 7. Lasix. 8. Ecotrin. 9. Symbicort. 10. Piperacillin. PAST SURGICAL HISTORY: 1. Cholecystectomy. 2. Bilateral ear surgery. SOCIAL HISTORY The patient denies tobacco or drug use. FAMILY HISTORY Noncontributory. REVIEW OF SYSTEMS The patient denies headache, visual changes, neck pain, chest pain, palpitations, cough, shortness of breath, abdominal pain, nausea, vomiting, recent weight loss, fevers, chills, numbness or tingling of extremities, bowel or bladder incontinence. He complains of the left arm swelling and left elbow pain with movement. PHYSICAL EXAMINATION The patient is a well-developed, well-nourished 66-year-old male who is moderately overweight. He is awake and alert. Vital signs: Temperature 97.6, pulse 99, respirations 20, blood pressure 101/78, O2 sat 94% on room air. Head: The patient is normocephalic. Pupils are equal. Neck: Soft, nontender. Trachea midline. Abdomen: Soft, nontender, nondistended. Extremities: Examination of left arm reveals minimal pain with gentle shoulder motion. He has mild discomfort with full range of motion of his elbow. Elbow range of motion is from 10 degrees up to 100 degrees with minimal discomfort. He has no pain with pronation, supination of his forearm. He does have mild tenderness to palpation directly over the radial head. He has moderate swelling of the forearm and hand. Skin is intact. He has good capillary refill of his fingers. Examination of right arm reveals no pain with shoulder, elbow or wrist motion. He has intact sensation in all fingers. He has good capillary refill of fingers. Skin is intact. Radial pulses palpable. Examination of bilateral lower extremities reveals no significant pain with hip, knee or ankle motion. Skin is intact. He does have mild swelling with ankles and feet. X-RAYS X-rays of left elbow were reviewed. X-rays reveal a possible nondisplaced fracture of the radial head. IMPRESSION 1. Diabetes. 2. COPD. 3. Hypertension. 4. Probable nondisplaced left radial head fracture. 5. Left arm swelling with possible cellulitis. PLAN At this point I would recommend nonsurgical treatment of the left radial head fracture. The patient would benefit from physical therapy, work on elbow range of motion. He may use his left arm for light activities. I will defer to infectious disease for antibiotic treatment of is possible cellulitis. He should elevate his arm to help with swelling. All questions were answered. He may follow up with orthopedics as needed as an outpatient. A mid-level provider in my office, nurse practitioner or PA, may see this patient on a follow-up basis and continue to implement the objective of this plan including: Starting or adjusting medications, injections of muscle, tendon, bursa or joints, cast application, orthotic or brace application, physical therapy, further radiographic studies including x-ray, MRI, CT, ultrasounds or bone scan, vascular studies, neurologic studies, or other specialist consultations, and proceeding with surgical management as appropriate. MD JACKY Genao/SELAM /8:16 AM 8:25 AM
[2017-03-24] MEDS ORDERED: FUROSEMIDE 20 MG TAB PO SCH (09:00)
--- NOTE | 2017-03-24 09:12 | HHI.HP ---
[facility] Geovanni Seymour MD Admission Diagnosis cellullitis Diagnoses: Chief Complaint: Left arm swelling and pain Travel History International Travel<30 Days: No Contact w/Intl Traveler <30 Da: No Traveled to Known Affected Are: No History of Present Illness H&P for 03/23/17. Patient seen and examined on 03/23/17 at 5 PM. 66-year-old male with a medical history significant for COPD, diabetes, hypertension, GERD, chronic lower extremity edema present to the emergency room for persistent left arm swelling and infection. The patient initially presented to the hospital for week ago for left wrist edema and redness. He was given Keflex and discharged home. He returned a few days later due to persistent symptoms. He was given IV documents and discharge home. The patient returned because he states his symptoms are not getting better. He denies any fevers or chills. Workup in the emergency room revealed the radial head fracture. Patient was started on broad-spectrum antibiotics for persistent cellulitis. On my evaluation, he reports significant pain at the elbow. He reports he is always had issues with swelling of his lower extremities but denies any history of CHF. He has been on diuretics at home. He admitted to having a fall about a month or so ago when his symptoms initially started. Review of Systems Constitutional: DENIES: Fever, Chills Cardiovascular: COMPLAINS OF: Lower Extremity Edema, DENIES: Chest pain Musculoskeletal: COMPLAINS OF: Joint pain Integumentary: COMPLAINS OF: Rash Except as stated in HPI: all other systems reviewed are Neg Past Family Social History Past Medical History COPD, diabetes, hypertension, GERD, chronic lower extremity edema Past Surgical History Hernia repair Cholecystectomy Reported Medications Reported Meds & Active Scripts Active Keflex (Cephalexin) 500 Mg Cap 500 Mg PO Q8H 7 Days Reported Ipratropium Neb (Ipratropium Mulberry) 0.5 Mg/2.5 Ml Amp 0.5 Mg NEB Q4HR NEB PRN Proair Hfa 8.5 GM Inh (Albuterol Sulfate) 90 Mcg/Act Aer 2 Puff INH BID PRN 108 mcg/actuation Advair Diskus Inh (Fluticasone-Salmeterol Inh) 250-50 Mcg/Blist Aer 1 Puff INH BID Rinse mouth after use. Atrovent HFA 12.9 GM Inh (Ipratropium Mulberry) 17 Mcg/Actuation Aer 2 Puff INH BID Furosemide 20 Mg Tab 20 Mg PO DAILY Janumet Xr (Sitagliptin-Metformin ER) 100-1,000 Mg Tab 1 Tab PO DAILY Glipizide 10 Mg Tab 10 Mg PO BIDAC Take 30 minutes before a meal Spironolactone 50 Mg Tab 50 Mg PO DAILY Aspirin 81 (Aspirin) 81 Mg Tabdr 81 Mg PO DAILY Lisinopril 20 Mg Tab 20 Mg PO DAILY Omeprazole 10 Mg Cap 10 Mg PO DAILY Metoprolol Tartrate 25 Mg Tab 25 Mg PO DAILY Allergies: Coded Allergies: No Known Allergies (Verified Allergy, Unknown, 03/23/17) Family History Reviewed and found to be noncontributory. Social History Denies tobacco, alcohol, or illicit drug use. Physical Exam Vital Signs Vital Signs Date Time Temp Pulse Resp B/P (MAP) Pulse Ox O2 Delivery O2 Flow Rate FiO2 03/24/17 08:03 97.6 99 20 101/78 (86) 94 03/24/17 04:09 61 03/24/17 04:00 97.7 56 17 115/70 (85) 96 03/24/17 00:15 53 03/24/17 00:00 98.5 56 17 115/67 (83) 97 03/23/17 20:14 56 03/23/17 20:00 98.4 61 16 135/77 (96) 94 03/23/17 19:30 Room Air 03/23/17 16:03 97.9 55 20 112/64 (80) 97 03/23/17 16:00 54 03/23/17 14:40 97.7 60 21 98/61 (73) 95 03/23/17 14:10 03/23/17 13:38 67 18 95 Room Air 03/23/17 09:52 98.3 106 22 144/86 (105) 93 Room Air Physical Exam GENERAL: This is a well-nourished, well-developed patient, in no apparent distress. SKIN: Left forearm from the wrist down to the elbow on the medial side, there is erythema. Bilateral lower extremity venous stasis changes HEAD: Atraumatic. Normocephalic. No temporal or scalp tenderness. EYES: Pupils equal round and reactive. Extraocular motions intact. No scleral icterus. No injection or drainage. ENT: Nose without bleeding, purulent drainage or septal hematoma. Throat without erythema, tonsillar hypertrophy or exudate. Uvula midline. Airway patent. NECK: Trachea midline. No JVD or lymphadenopathy. Supple, nontender, no meningeal signs. CARDIOVASCULAR: Regular rate and rhythm without murmurs, gallops, or rubs. RESPIRATORY: Clear to auscultation. Breath sounds equal bilaterally. No wheezes , rales, or rhonchi. GASTROINTESTINAL: Abdomen soft, non-tender, nondistended. No hepato-splenomegaly , or palpable masses. No guarding. MUSCULOSKELETAL: Left elbow tender to palpation. Limited range of motion at the elbow due to pain. Bilateral lower extremity with 2+ edema NEUROLOGICAL: Awake and alert. Cranial nerves II through XII intact. Motor and sensory grossly within normal limits. Five out of 5 muscle strength in all muscle groups. Normal speech. Laboratory Laboratory Tests Test 03/23/17 11:27 03/24/17 06:40 03/24/17 06:41 White Blood Count 7.0 6.1 Red Blood Count 3.81 3.74 Hemoglobin 12.1 12.2 Hematocrit 36.1 35.2 Mean Corpuscular Volume 94.7 94.0 Mean Corpuscular Hemoglobin 31.6 32.7 Mean Corpuscular Hemoglobin Concent 33.4 34.8 Red Cell Distribution Width 15.3 15.1 Platelet Count 199 198 Mean Platelet Volume 7.3 7.7 Neutrophils (%) (Auto) 75.6 70.9 Lymphocytes (%) (Auto) 12.9 15.3 Monocytes (%) (Auto) 9.8 11.0 Eosinophils (%) (Auto) 1.4 2.1 Basophils (%) (Auto) 0.3 0.7 Neutrophils # (Auto) 5.3 4.3 Lymphocytes # (Auto) 0.9 0.9 Monocytes # (Auto) 0.7 0.7 Eosinophils # (Auto) 0.1 0.1 Basophils # (Auto) 0.0 0.0 CBC Comment DIFF FINAL DIFF FINAL Differential Comment Prothrombin Time 11.1 Prothromb Time International Ratio 1.1 Activated Partial Thromboplast Time 25.5 Blood Urea Nitrogen 17 14 Creatinine 1.04 0.98 Random Glucose 79 126 Total Protein 6.5 Albumin 2.8 Calcium Level 8.5 8.7 Alkaline Phosphatase 71 Aspartate Amino Transf (AST/SGOT) 15 Alanine Aminotransferase (ALT/SGPT) 26 Total Bilirubin 0.4 Sodium Level 139 140 Potassium Level 4.1 3.8 Chloride Level 105 106 Carbon Dioxide Level 26.8 26.7 Anion Gap 7 7 Estimat Glomerular Filtration Rate 71 76 Lactic Acid Level 1.2 Date/Time Source Procedure Growth Status 03/23/17 11:26 Blood Peripheral Aerobic Blood Culture Pending Received 03/23/17 11:26 Blood Peripheral Anaerobic Blood Culture Pending Received Result Diagram: 03/24/17 0640 03/24/17 0641 Imaging Last Impressions Upper Extremity Ultrasound 03/23/17 0000 Signed Impressions: Service Date/Time: Thursday, March 23, 2017 10:50 - CONCLUSION: No evidence of deep venous thrombosis within the left upper extremity. Aneudy Bhatti MD Radius/Ulna X-Ray 03/23/17 0000 Signed Impressions: Service Date/Time: Thursday, March 23, 2017 10:33 - CONCLUSION: 1. Moderate-sized elbow joint effusion. 2. Probable acute fracture involving the left radial head. Clinical correlation is recommended. Aneudy Bhatti MD Caprini VTE Risk Assessment Caprini VTE Risk Assessment: Mod/High Risk (score >= 2) Caprini Risk Assessment Model Point Value = 1 Point Value = 2 Point Value = 3 Point Value = 5 Age 41-60 Minor surgery BMI > 25 kg/m2 Swollen legs Varicose veins or History of unexplained or recurrent spontaneous Oral contraceptives or hormone replacement Sepsis (< 1 month) Serious lung disease, including pneumonia (< 1 month) Abnormal pulmonary function Acute myocardial infarction Congestive heart failure (< 1 month) History of inflammatory bowel disease Medical patient at bed rest Age 61-74 Arthroscopic surgery Major open surgery (> 45 min) Laparoscopic surgery (> 45 min) Malignancy Confined to bed (> 72 hours) Immobilizing plaster cast Central venous access Age >= 75 History of VTE Family history of VTE Factor V Leiden Prothrombin [id number] Lupus anticoagulant Anticardiolipin antibodies Elevated serum homocysteine Heparin-induced thrombocytopenia Other congenital or acquired thrombophilia Stroke (< 1 month) Elective arthroplasty Hip, pelvis, or leg fracture Acute spinal cord injury (< 1 month) Prophylaxis Regimen Total Risk Factor Score Risk Level Prophylaxis Regimen 0-1 Low Early ambulation 2 Moderate Order ONE of the following: *Sequential Compression Device (SCD) *Heparin 5000 units SQ BID 3-4 Higher Order ONE of the following medications: *Heparin 5000 units SQ TID *Enoxaparin/Lovenox 40 mg SQ daily (WT < 150 kg, CrCl > 30 mL/min) *Enoxaparin/Lovenox 30 mg SQ daily (WT < 150 kg, CrCl > 10-29 mL/min) *Enoxaparin/Lovenox 30 mg SQ BID (WT < 150 kg, CrCl > 30 mL/min) AND/OR *Sequential Compression Device (SCD) 5 or more Highest Order ONE of the following medications: *Heparin 5000 units SQ TID (Preferred with Epidurals) *Enoxaparin/Lovenox 40 mg SQ daily (WT < 150 kg, CrCl > 30 mL/min) *Enoxaparin/Lovenox 30 mg SQ daily (WT < 150 kg, CrCl > 10-29 mL/min) *Enoxaparin/Lovenox 30 mg SQ BID (WT < 150 kg, CrCl > 30 mL/min) AND *Sequential Compression Device (SCD) Assessment and Plan Problem List: (1) Lower extremity edema ICD Code: R60.0 - Localized edema (2) Elbow fracture, left ICD Code: S42.402A - Unspecified fracture of lower end of left humerus, initial encounter for closed fracture (3) Cellulitis ICD Code: L03.90 - Cellulitis, unspecified Status: Acute (4) COPD (chronic obstructive pulmonary disease) ICD Code: J44.9 - Chronic obstructive pulmonary disease, unspecified Status: Acute Assessment and Plan 66-year-old male admitted with left arm cellulitis. Failed outpatient therapy. Patient found to have an elbow fracture at the radial head. Cellulitis: Failed outpatient therapy with Keflex and Dalvance. More edema rather redness - Consult ID for assistance with Antibiotics. - Continue broad-spectrum antibiotics with vancomycin and Zosyn while waiting for ID input. - Advised patient to elevate the left arm as tolerated. Left radial head fracture: Secondary to traumatic fall. - Consult orthopedic surgery - Pain control Bilateral lower extremity edema: Patient denies any history of heart failure. - Continue home dose Lasix. Diabetes: - Resume home dose metformin and Janumet. GI prophylaxis: Stool softener PRN constipation. DVT PPx: Heparin Physician Certification 2 Midnight Certification Type: Admission for Inpatient Services Order for Inpatient Services The services are ordered in accordance with Medicare regulations or non- Medicare payer requirements, as applicable. In the case of services not specified as inpatient-only, they are appropriately provided as inpatient services in accordance with the 2-midnight benchmark. Estimated LOS (days): 3 days is the estimated time the patient will need to remain in the hospital, assuming treatment plan goals are met and no additional complications. Post-Hospital Plan: Home Problem Qualifiers (1) Cellulitis: Qualified Codes: L03.114 - Cellulitis of left upper limb Vijay Howard MD Mar 24, 2017 09:12
[2017-03-24] MEDS ORDERED: PNEUMOCOCCAL POLYVALENT INJ 25 MCG/0.5 ML SYR IM ONE (10:00)
[2017-03-24] MEDS ORDERED: FUROSEMIDE 40 MG/4 ML VIAL IV PUSH ONE (10:00)
--- NOTE | 2017-03-24 10:00 | HHI.PR ---
Subjective Remarks Patient reports pain is better controlled with the medications. Erythema resolved but swelling persist. Objective Vitals Vital Signs Date Time Temp Pulse Resp B/P (MAP) Pulse Ox O2 Delivery O2 Flow Rate FiO2 03/24/17 08:03 97.6 99 20 101/78 (86) 94 03/24/17 04:09 61 03/24/17 04:00 97.7 56 17 115/70 (85) 96 03/24/17 00:15 53 03/24/17 00:00 98.5 56 17 115/67 (83) 97 03/23/17 20:14 56 03/23/17 20:00 98.4 61 16 135/77 (96) 94 03/23/17 19:30 Room Air 03/23/17 16:03 97.9 55 20 112/64 (80) 97 03/23/17 16:00 54 03/23/17 14:40 97.7 60 21 98/61 (73) 95 03/23/17 14:10 03/23/17 13:38 67 18 95 Room Air I/O 03/23/17 03/23/17 03/23/17 03/24/17 03/24/17 03/24/17 07:00 15:00 23:00 07:00 15:00 23:00 Intake Total 240 ml 1200 ml Balance 240 ml 1200 ml Intake Oral 240 ml 1200 ml # Voids 3 4 # Bowel Movements 0 0 Result Diagram: 03/24/17 0640 03/24/17 0641 Objective Remarks GENERAL: This is a well-nourished, well-developed patient, in no apparent distress. CARDIOVASCULAR: Normal rate and regular rhythm without murmurs, gallops, or rubs. RESPIRATORY: Good respiratory efforts. Breath sounds equal and clear to auscultation bilaterally. GASTROINTESTINAL: Abdomen soft, non-tender, non-distended. Normal active bowel sounds MUSCULOSKELETAL: Left arm with nonpitting edema from the hand up to the elbow. Limited range of motion of the elbow due to pain. 2+ bilateral lower extremity edema NEURO: Alert & Oriented x4 to person, place, time, situation. Moves all ext x4 PSYCH: Appropriate mood and affect. A/P Assessment and Plan 66-year-old male admitted with left arm cellulitis. Failed outpatient therapy. Patient found to have an elbow fracture at the radial head. Cellulitis: Failed outpatient therapy with Keflex and Dalvance. Erythema pretty much resolved. Per ID, swelling is likely secondary to fracture. Antibiotics discontinued. - We'll give IV diuretics to help with swelling over the next 24 hours and monitor off of antibiotics. - Advised patient to elevate the left arm as tolerated. Left radial head fracture: Secondary to traumatic fall. -Appreciate orthopedic surgery consulted. Recommend nonoperative management - Pain control - PT as tolerated Bilateral lower extremity edema: Patient denies any history of heart failure. -Transition to IV Lasix. Monitor response and monitor for improvement of edema of the legs and the left arm. Diabetes: -Continue home dose metformin and Janumet. GI prophylaxis: Stool softener PRN constipation. DVT PPx: Heparin Vijay Howard MD Mar 24, 2017 10:00
[2017-03-24] MEDS: TIOTROPIUM BROMIDE 18 MCG INH INH SCH (10:26)
[2017-03-24] MEDS ORDERED: PHARMACY ORDERED LAB ONE (12:45)
--- NOTE | 2017-03-24 13:51 | HHI.IDPN ---
Note Infectious Disease Note Patient says he feels okay except for pain in the left arm. Pain worse when he moves the arm a certain position such as flexing at the elbow. Little erythema. Afebrile. Failed Dalvance therapy. PAST MEDICAL HISTORY 1. COPD, 2. Diabetes mellitus, 3. Sleep apnea. The patient uses BiPap at home 4. Hypertension, 5. History of pancreatitis 6. Hiatal hernia, 7. Gastroesophageal reflux disease, 8. Hypercholesteremia 9. History of cholecystectomy, 10. Bilateral ear surgery ALLERGIES NO KNOWN DRUG ALLERGIES. MEDICATIONS 1. Vancomycin. 2. Piperacillin/tazobactam. PHYSICAL EXAMINATION GENERAL: No acute distress. HEENT: No icterus. Oropharynx - moist mucosa without lesions. NECK: Supple. No adenopathy or swelling. LUNGS: Decreased breath sounds. HEART: Regular S1 and S2 without murmurs, rubs or gallops. ABDOMEN: Bowel sounds present, soft, nontender. EXTREMITIES: The left arm swelling is decreased slightly. 3+ swelling at the dorsum of the hand, 2+ toward the left elbow. SKIN: Minimal erythema at the left arm. No diffuse rash. NEUROLOGIC: No gross focal findings. PSYCHIATRIC: The patient is calm and cooperative. IMPRESSION 1. Left upper extremity swelling likely related to fracture of left upper extremity. 2. Very little erythema at this time. No clear cellulitis. 3. Failure of antibiotic treatment. RECOMMENDATIONS 1. Stop vancomycin. 2. Stop piperacillin/tazobactam. 3. Elevate the left arm 4. Wrap left hand and arm in brando wrap. 5. Monitor clinically. Jacob Ha MD Mar 24, 2017 13:51
[2017-03-24] MEDS: metFORMIN HCL 500 MG TAB PO SCH (16:51)
[2017-03-24] MEDS: FUROSEMIDE 20 MG/2 ML VIAL IV PUSH SCH (16:52)
[2017-03-24] MEDS: glipiZIDE 10 MG TAB PO SCH (16:52)
[2017-03-25] VITALS (12 sets, daily range): BP systolic 96–121; BP diastolic 54–71; PULSE 51–69; RESP 16–18; TEMP 97.3–98.5; O2SAT 94–96
[2017-03-25] MEDS: glipiZIDE 10 MG TAB PO SCH ×2 (06:21→18:13)
[2017-03-25] MEDS: ACETAMINOPHEN/HYDROcodone 325 MG/10 MG TAB PO PRN ×2 (06:21→20:37)
[2017-03-25] MEDS: INSULIN ASPART SUPPLEMENTAL SCALE SQ SCH ×4 (08:00→20:37)
[2017-03-25] MEDS: SODIUM CHLORIDE 0.9% FLUSH 10 ML FLUSH IV FLUSH SCH ×2 (09:00→20:37)
[2017-03-25] MEDS: ASPIRIN EC 81 MG TABEC PO SCH (10:35)
[2017-03-25] MEDS: LISINOPRIL 20 MG TAB PO SCH (10:36)
[2017-03-25] MEDS: METOPROLOL TARTRATE 25 MG TAB PO SCH (10:36)
[2017-03-25] MEDS: PANTOPRAZOLE SOD 20 MG DELAYED RELEASE TAB PO SCH (10:36)
[2017-03-25] MEDS: FUROSEMIDE 20 MG/2 ML VIAL IV PUSH SCH ×2 (10:37→18:14)
[2017-03-25] MEDS: metFORMIN HCL 500 MG TAB PO SCH ×2 (10:41→18:15)
[2017-03-25] MEDS: SPIRONOLACTONE 50 MG TAB PO SCH (10:42)
[2017-03-25] MEDS: BUDESONIDE-FORMOTEROL 160/4.5 MCG INHALER INH SCH ×2 (10:47→20:37)
[2017-03-25] MEDS: TIOTROPIUM BROMIDE 18 MCG INH INH SCH (10:47)
--- NOTE | 2017-03-25 14:17 | HHI.PR ---
Subjective Remarks Patient reports persistent swelling. Pain is controlled with the medications. Objective Vitals Vital Signs Date Time Temp Pulse Resp B/P (MAP) Pulse Ox O2 Delivery O2 Flow Rate FiO2 03/25/17 12:25 98.1 52 18 112/63 (79) 95 03/25/17 08:04 97.5 54 18 105/55 (72) 96 03/25/17 05:34 97.3 59 16 96/60 (72) 94 03/25/17 03:45 59 03/25/17 00:00 98.3 60 16 105/54 (71) 94 03/24/17 23:41 53 03/24/17 20:00 99.3 65 16 98/56 (70) 94 03/24/17 20:00 62 03/24/17 19:45 Room Air 03/24/17 16:04 98.0 54 20 114/56 (75) 97 I/O 03/24/17 03/24/17 03/24/17 03/25/17 03/25/17 03/25/17 06:59 14:59 22:59 06:59 14:59 22:59 Intake Total 1535 ml 600 ml Balance 1535 ml 600 ml Intake Oral 1200 ml 600 ml IV Total 335 ml # Voids 4 12 # Bowel Movements 0 0 Result Diagram: 03/24/17 0640 03/24/17 0641 Objective Remarks GENERAL: This is a well-nourished, well-developed patient, in no apparent distress. CARDIOVASCULAR: Normal rate and regular rhythm without murmurs, gallops, or rubs. RESPIRATORY: Good respiratory efforts. Breath sounds equal and clear to auscultation bilaterally. GASTROINTESTINAL: Abdomen soft, non-tender, non-distended. Normal active bowel sounds MUSCULOSKELETAL: Left arm with nonpitting edema from the hand up to the elbow. Limited range of motion of the elbow due to pain. 2+ bilateral lower extremity edema NEURO: Alert & Oriented x4 to person, place, time, situation. Moves all ext x4 PSYCH: Appropriate mood and affect. A/P Problem List: (1) Lower extremity edema ICD Code: R60.0 - Localized edema (2) Elbow fracture, left ICD Code: S42.402A - Unspecified fracture of lower end of left humerus, initial encounter for closed fracture (3) Cellulitis ICD Code: L03.90 - Cellulitis, unspecified Status: Acute (4) COPD (chronic obstructive pulmonary disease) ICD Code: J44.9 - Chronic obstructive pulmonary disease, unspecified Status: Acute Assessment and Plan 66-year-old male admitted with left arm cellulitis. Failed outpatient therapy. Patient found to have an elbow fracture at the radial head. Cellulitis: Failed outpatient therapy with Keflex and Dalvance. Erythema pretty much resolved. Per ID, swelling is likely secondary to fracture. Antibiotics discontinued. -We will continue IV diuretics to help with swelling over the next 24 hours and continue to monitor off of antibiotics. - Advised patient to elevate the left arm as tolerated. Left radial head fracture: Secondary to traumatic fall. -Appreciate orthopedic surgery consulted. Recommend nonoperative management - Pain control - PT as tolerated Bilateral lower extremity edema: Patient denies any history of heart failure. -Continue IV Lasix. Monitor response and monitor for improvement of edema of the legs and the left arm. Diabetes: -Continue home dose metformin and Janumet. GI prophylaxis: Stool softener PRN constipation. DVT PPx: Heparin Discharge Planning Probable discharge in the next 1-2 days pending improvement. Problem Qualifiers (1) Cellulitis: Qualified Codes: L03.114 - Cellulitis of left upper limb Vijay Howard MD Mar 25, 2017 14:17
[2017-03-25] MEDS ORDERED: TEMAZEPAM 15 MG CAP PO PRN (15:00)
[2017-03-26] VITALS (8 sets, daily range): BP systolic 98–130; BP diastolic 61–76; PULSE 55–123; RESP 18; TEMP 98.3–98.4; O2SAT 93–95
[2017-03-26] MEDS ORDERED: METOPROLOL TARTRATE 25 MG TAB PO ONE (05:15)
--- NOTE | 2017-03-26 07:54 | PD.ORT.PN ---
Subjective Subjective Remarks Sitting comfortably in chair next to bed Objective Vitals Vital Signs Date Time Temp Pulse Resp B/P (MAP) Pulse Ox O2 Delivery O2 Flow Rate FiO2 03/26/17 04:40 123 106/61 (76) 03/26/17 04:25 122 03/26/17 04:00 98.4 90 18 98/65 (76) 94 03/26/17 04:00 Room Air 03/26/17 00:00 98.3 71 18 104/66 (79) 95 03/26/17 00:00 Room Air 03/25/17 23:58 62 03/25/17 20:29 66 03/25/17 20:00 Room Air 03/25/17 20:00 98.1 69 16 121/68 (85) 95 03/25/17 16:19 98.5 57 18 112/71 (85) 96 03/25/17 16:00 51 03/25/17 12:25 98.1 52 18 112/63 (79) 95 03/25/17 12:00 52 03/25/17 08:04 97.5 54 18 105/55 (72) 96 I/O 03/25/17 03/25/17 03/25/17 03/26/17 03/26/17 03/26/17 07:00 15:00 23:00 07:00 15:00 23:00 Intake Total 2140 ml Output Total 750 ml Balance 1390 ml Intake Oral 2140 ml Output Urine Total 750 ml # Voids 5 # Bowel Movements 2 Result Diagram: 03/24/17 0640 03/24/17 0641 Objective Remarks Left upper extremity: No pain with shoulder range of motion. He continues to have tenderness with motion of the elbow. Distally he has intact sensation of the radial ulnar median nerve distributions with good capillary refills Assessment & Plan Assessment and Plan Possible left nondisplaced radial head fracture Sling for left upper extremity Occupational therapy for passive range of motion and active assist range of motion of elbow. Avoid weightbearing left upper extremity Follow-up x-rays in approximately 2 weeks Adams Davis Jr. Mar 26, 2017 07:54
[2017-03-26] MEDS: INSULIN ASPART SUPPLEMENTAL SCALE SQ SCH ×2 (08:00→12:00)
[2017-03-26 08:30] LABS: HEMOGLOBIN 13.6 GM/DL (13.0-17.0); MEAN CELL VOLUME 94.4 FL (80.0-100.0); MEAN CORPUSCULAR HEMOGLOBIN 32.2 PG (27.0-34.0); MEAN CORPUSCULAR HGB CONC 34.1 % (32.0-36.0); MEAN PLATELET VOLUME 7.7 FL (7.0-11.0); PLATELET COUNT 243 TH/MM3 (150-450); RED BLOOD COUNT 4.24 MIL/MM3 (4.50-5.90); RED CELL DISTRIBUTION WIDTH 15.2 % (11.6-17.2); WHITE BLOOD COUNT 7.4 TH/MM3 (4.0-11.0)
[2017-03-26] MEDS: LISINOPRIL 20 MG TAB PO SCH (08:44)
[2017-03-26] MEDS: glipiZIDE 10 MG TAB PO SCH (08:45)
[2017-03-26] MEDS: ASPIRIN EC 81 MG TABEC PO SCH (08:45)
[2017-03-26] MEDS: PANTOPRAZOLE SOD 20 MG DELAYED RELEASE TAB PO SCH (08:45)
[2017-03-26] MEDS: METOPROLOL TARTRATE 25 MG TAB PO SCH (08:45)
[2017-03-26] MEDS: SPIRONOLACTONE 50 MG TAB PO SCH (08:45)
[2017-03-26] MEDS: BUDESONIDE-FORMOTEROL 160/4.5 MCG INHALER INH SCH (08:46)
[2017-03-26] MEDS: TIOTROPIUM BROMIDE 18 MCG INH INH SCH (08:46)
[2017-03-26] MEDS: SODIUM CHLORIDE 0.9% FLUSH 10 ML FLUSH IV FLUSH SCH (08:46)
[2017-03-26] MEDS: FUROSEMIDE 20 MG/2 ML VIAL IV PUSH SCH (08:46)
[2017-03-26] MEDS: ACETAMINOPHEN/HYDROcodone 325 MG/10 MG TAB PO PRN (08:50)
[2017-03-26] MEDS: metFORMIN HCL 500 MG TAB PO SCH (08:52)
[2017-03-26 09:14] LABS: BICARBONATE 28.3 MEQ/L (21.0-32.0); CALCIUM 9.1 MG/DL (8.5-10.1); CREATININE 1.26 MG/DL (0.60-1.30)
[2017-03-26] MEDS ORDERED: HYDR-3583 PO (13:40)
[2017-03-26] MEDS ORDERED: METO25TA3 PO (13:40)
[2017-03-26] MEDS ORDERED: FURO40TA PO (13:40)
--- NOTE | 2017-03-26 13:41 | HHI.DS ---
Discharge Summary Admission Date Mar 23, 2017 at 13:02 Discharge Date: Mar 26, 2017 Admitting Diagnosis cellullitis (1) Lower extremity edema ICD Code: R60.0 - Localized edema (2) Elbow fracture, left ICD Code: S42.402A - Unspecified fracture of lower end of left humerus, initial encounter for closed fracture (3) Cellulitis ICD Code: L03.90 - Cellulitis, unspecified Status: Acute (4) COPD (chronic obstructive pulmonary disease) ICD Code: J44.9 - Chronic obstructive pulmonary disease, unspecified Status: Acute Procedures None Brief History - From Admission 66-year-old male with a medical history significant for COPD, diabetes, hypertension, GERD, chronic lower extremity edema present to the emergency room for persistent left arm swelling and infection. The patient initially presented to the hospital for week ago for left wrist edema and redness. He was given Keflex and discharged home. He returned a few days later due to persistent symptoms. He was given IV documents and discharge home. The patient returned because he states his symptoms are not getting better. He denies any fevers or chills. Workup in the emergency room revealed the radial head fracture. Patient was started on broad-spectrum antibiotics for persistent cellulitis. On my evaluation, he reports significant pain at the elbow. He reports he is always had issues with swelling of his lower extremities but denies any history of CHF. He has been on diuretics at home. He admitted to having a fall about a month or so ago when his symptoms initially started. CBC/BMP: 03/26/17 0807 03/26/17 0807 Significant Findings Laboratory Tests Test 03/24/17 06:40 03/24/17 06:41 03/25/17 21:10 03/26/17 08:07 Red Blood Count 3.74 MIL/MM3 (4.50-5.90) 4.24 MIL/MM3 (4.50-5.90) Hemoglobin 12.2 GM/DL (13.0-17.0) Hematocrit 35.2 % (39.0-51.0) Neutrophils (%) (Auto) 70.9 % (16.0-70.0) Monocytes (%) (Auto) 11.0 % (0.0-8.0) Lymphocytes # (Auto) 0.9 TH/MM3 (1.0-4.8) Random Glucose 126 MG/DL (74-106) Estimat Glomerular Filtration Rate 76 ML/MIN (>89) 57 ML/MIN (>89) Blood Urea Nitrogen 26 MG/DL (7-18) Imaging Last Impressions Upper Extremity Ultrasound 03/23/17 0000 Signed Impressions: Service Date/Time: Thursday, March 23, 2017 10:50 - CONCLUSION: No evidence of deep venous thrombosis within the left upper extremity. Aneudy Bhatti MD Radius/Ulna X-Ray 03/23/17 0000 Signed Impressions: Service Date/Time: Thursday, March 23, 2017 10:33 - CONCLUSION: 1. Moderate-sized elbow joint effusion. 2. Probable acute fracture involving the left radial head. Clinical correlation is recommended. Aneudy Bhatti MD PE at Discharge GENERAL: This is a well-nourished, well-developed patient, in no apparent distress. CARDIOVASCULAR: Normal rate and regular rhythm without murmurs, gallops, or rubs. RESPIRATORY: Good respiratory efforts. Breath sounds equal and clear to auscultation bilaterally. GASTROINTESTINAL: Abdomen soft, non-tender, non-distended. Normal active bowel sounds MUSCULOSKELETAL: Left arm with nonpitting edema from the hand up to the elbow. Limited range of motion of the elbow due to pain. 2+ bilateral lower extremity edema NEURO: Alert & Oriented x4 to person, place, time, situation. Moves all ext x4 PSYCH: Appropriate mood and affect. Pt update on day of discharge Patient reports is feeling better. Left upper extremity swelling resolving. Still have some lateral lower extremity swelling. He denies shortness of breath or chest pain. Hospital Course 66-year-old male admitted with left arm cellulitis. Failed outpatient therapy. Patient found to have an elbow fracture at the radial head. Patient was followed by infectious disease. Antibiotics were discontinued as it was felt the swelling was likely secondary to the fracture. Patient was monitored off antibiotics and he continues to improve with near resolution of left upper extremity swelling. Erythema completely resolved. Regarding the left radial head fracture, the patient was seen by orthopedic surgery who recommended nonoperative management with a sling and pain control. The patient has chronic lower extremity edema which has gotten worse per his account. He was treated with IV Lasix with improvement. He has no history of heart failure and no clinical signs of heart failure. Bilateral lower extremity edema likely dependent edema. He was counseled on salt restriction. He is advised to keep legs elevated and wear stockings. Home dose Lasix increased. Patient advised to follow-up outpatient with his PCP. Diabetes: -Continue home dose metformin and Janumet. Pt Condition on Discharge: Good Discharge Disposition: Discharge Home Discharge Time: <= 30 minutes Discharge Instructions DIET: Follow Instructions for: Diabetic Diet Activities you can perform: Regular-No Restrictions Other Activity Instructions: Avoid weightbearing left upper extremity Follow up Referrals: PCP Follow-up - 2 Weeks New Medications: Hydrocodone/Acetaminophen (Hydrocodone-Acetamin 10-325 mg) 10 Mg-325 Mg Tablet 1 TAB PO Q4H PRN for PAIN 6-10, #20 Changed Medications: Furosemide (Furosemide) 40 Mg Tab 40 MG PO DIRECTED, #60 TAB 0 Refills (Changed from: Furosemide 20 Mg Tab 20 Mg PO DAILY #30 TAB Ref 0) Take 40 mg twice daily for one week, then 40 mg daily Metoprolol Tartrate (Metoprolol Tartrate) 25 Mg Tab 25 MG PO BID, #60 TAB 0 Refills (Changed from: DAILY; 30) Continued Medications: Albuterol 8.5 GM Inh (Proair Hfa 8.5 GM Inh) 90 Mcg/Act Aer 2 PUFF INH BID PRN for SHORTNESS OF BREATH, #1 INHALER 0 Refills 108 mcg/actuation Aspirin DR (Aspirin 81) 81 Mg Tabdr 81 MG PO DAILY, TAB 0 Refills Fluticasone-Salmeterol Inh (Advair Diskus Inh) 250-50 Mcg/Blist Aer 1 PUFF INH BID, #1 INHALER 0 Refills Rinse mouth after use. Glipizide (Glipizide) 10 Mg Tab 10 MG PO BIDAC for Blood Sugar Management, #60 TAB 0 Refills Take 30 minutes before a meal Ipratropium HFA 12.9 GM Inh (Atrovent HFA 12.9 GM Inh) 17 Mcg/Actuation Aer 2 PUFF INH BID, #1 INHALER 0 Refills Ipratropium Neb (Ipratropium Neb) 0.5 Mg/2.5 Ml Amp 0.5 MG NEB Q4HR NEB PRN for SHORTNESS OF BREATH, #180 NEBULE 0 Refills Lisinopril (Lisinopril) 20 Mg Tab 20 MG PO DAILY, #30 TAB 0 Refills Omeprazole (Omeprazole) 10 Mg Cap 10 MG PO DAILY, #30 CAP 0 Refills Sitagliptin-Metformin ER (Janumet Xr) 100-1,000 Mg Tab 1 TAB PO DAILY for Blood Sugar Management, #30 TAB 0 Refills Spironolactone (Spironolactone) 50 Mg Tab 50 MG PO DAILY, #30 TAB 0 Refills Discontinued Medications: Cephalexin (Keflex) 500 Mg Cap 500 MG PO Q8H for Infection for 7 Days, #21 CAP 0 Refills Vijay Howard MD Mar 26, 2017 13:41
--- NOTE | 2017-03-26 13:41 | HHI.DCPOC ---
Discharge Care Plan Diagnosis: (1) Lower extremity edema (2) Elbow fracture, left (3) Cellulitis Goals to Promote Your Health * To prevent worsening of your condition and complications * To maintain your health at the optimal level Directions to Meet Your Goals Take your medications as prescribed Follow your dietary instruction Follow activity as directed Keep your appointments as scheduled Take your immunizations and boosters as scheduled If your symptoms worsen call your PCP, if no PCP go to Urgent Care Center or Emergency Room Smoking is Dangerous to Your Health. Avoid second hand smoke Call the 24-hour hour crisis hotline for domestic abuse at Vijay Howard MD Mar 26, 2017 13:41
[2017-03-26] MEDS ORDERED: METOPROLOL TARTRATE 25 MG TAB PO SCH (21:00)
== END 2017-03-26 16:41 | disposition home or self-care (01) | DRG 603 ==
LOC: NEPE 09:49 → NEDA 13:02 → N04B 14:18
PROVIDERS: ADMIT Hospitalist; ATTEND Hospitalist
DX: L03.114 Cellulitis of left upper limb (principal); J44.9 Chronic obstructive pulmonary disease, unspecified; I10 Essential (primary) hypertension; S42.402A Unspecified fracture of lower end of left humerus, initial encounter for closed fracture; E11.9 Type 2 diabetes mellitus without complications; R60.0 Localized edema; K21.9 Gastro-esophageal reflux disease without esophagitis; G47.30 Sleep apnea, unspecified; H91.93 Unspecified hearing loss, bilateral; W19.XXXA Unspecified fall, initial encounter; Z23 Encounter for immunization; Z79.84 Long term (current) use of oral hypoglycemic drugs; Z87.891 Personal history of nicotine dependence
CPT/HCPCS: 73090; 76937; 80048; 80053; 82948; 83605; 83880; 85025; 85027; 85610; 85730; 87040; 90732; 93971; 96365; J1940; J2543; J3370; J7050